=== PATIENT | male | born 1935 | race Caucasian/White ===

== ENCOUNTER 2018-10-09 00:25 | Emergency (ER) | payer MEDICARE, OTHER ==
[2018-10-09] MEDS ORDERED: Sodium Chloride 0.9% 10 ML Syringe FLUSH PRN (00:37)
[2018-10-09] MEDS: cefTRIAXone 2 GM Vial IVPUSH ONE (01:15)
[2018-10-09 01:43] LABS: CHLORIDE,CL 107 mmol/L (98-107); SODIUM,NA 144 mmol/L (136-145)
[2018-10-09 01:44] LABS: ANION GAP 14.4 mmol/L (10-20)
--- NOTE | 2018-10-09 02:17 | EDM.PDOC ---
ED HPI GENERAL MEDICAL PROBLEM - General Chief Complaint: General Stated Complaint: Weakness, fever Time Seen by Provider: 10/09/18 00:37 Source of Information: Reports: Patient, EMS, Family History Limitations: Reports: No Limitations - History of Present Illness INITIAL COMMENTS - FREE TEXT/NARRATIVE: Patient presents with complaints of sudden onset cough and weakness. Normally does ambulate independently but family states they were having to assist him. They state prior history of pneumonia with similar type symptoms. Has fever and chills, cough that is non productive. Patient does have atrial fibrillation with anticoagulation with coumadin. Denies chest pain. No headache or confusion. Does have SOB. No abdominal pain, blood in urine or stool. Is alert. Is diaphoretic on presentation with fever, tachypnea. Paced rhythm with a-fib on EKG. Onset: Sudden Onset Date: 10/09/18 Duration: Getting Worse Location: Reports: Generalized Associated Symptoms: Reports: Cough, Fever/Chills, Shortness of Breath, Weakness Treatments PEARL DIGGER: Reports: EKG, Oxygen - Related Data Allergies Allergy/AdvReac Type Severity Reaction Status Date / Time No Known Allergies Allergy Verified 10/09/18 01:14 Home Meds: Home Meds Levothyroxine Sodium 25 mcg PO DAILY 06/10/14 [History] Lisinopril 5 mg PO DAILY 06/10/14 [History] Pantoprazole Sodium 40 mg PO DAILY 06/10/14 [History] Sotalol [Betapace] 80 mg PO BID 06/10/14 [History] Past Medical History Cardiovascular History: Reports: Afib, Heart Failure, Hypertension, Pacemaker Gastrointestinal History: Reports: GERD Endocrine/Metabolic History: Reports: Hypothyroidism ED ROS GENERAL - Review of Systems Review Of Systems: See Below Constitutional: Reports: Fever, Chills HEENT: Reports: No Symptoms Respiratory: Reports: Shortness of Breath, Cough Cardiovascular: Reports: No Symptoms Endocrine: Reports: No Symptoms GI/Abdominal: Reports: No Symptoms : Reports: No Symptoms Musculoskeletal: Reports: No Symptoms Skin: Reports: No Symptoms Neurological: Reports: Weakness Psychiatric: Reports: No Symptoms Hematologic/Lymphatic: Reports: No Symptoms Immunologic: Reports: No Symptoms ED EXAM, GENERAL - Physical Exam Exam: See Below Exam Limited By: No Limitations General Appearance: Alert, WD/WN, Mild Distress Eye Exam: Bilateral Eye: EOMI, Normal Inspection, PERRL Ears: Normal TMs Nose: Normal Inspection, Normal Mucosa, No Blood Throat/Mouth: Normal Inspection, Normal Lips, Normal Teeth, Normal Gums, Normal Oropharynx, Normal Voice, No Airway Compromise Head: Atraumatic, Normocephalic Neck: Normal Inspection, Supple, Non-Tender, Full Range of Motion Respiratory/Chest: No Respiratory Distress, No Accessory Muscle Use, Chest Non- Tender, Crackles (bibasilar lobes) Cardiovascular: Other (paced with atrial fibrillation) Peripheral Pulses: 1+: Posterior Tibial (L), Posterior Tibial (R), Dorsalis Pedis (L), Dorsalis Pedis (R) GI/Abdominal: Normal Bowel Sounds, Soft, Non-Tender, No Distention Back Exam: Normal Inspection, Full Range of Motion, NT Extremities: Normal Range of Motion, Normal Capillary Refill, Pedal Edema (3+ pitting bilateral) Neurological: Alert, Oriented, CN II-XII Intact, Normal Cognition, Normal Gait, Normal Reflexes, No Motor/Sensory Deficits Psychiatric: Normal Affect, Normal Mood Skin Exam: Warm, Dry, Intact, Normal Color, No Rash Lymphatic: No Adenopathy Course - Vital Signs Last Recorded V/S: Last Vital Signs Temp 37.8 C 10/09/18 02:08 Pulse 100 10/09/18 02:08 Resp 24 H 10/09/18 02:08 BP 114/57 L 10/09/18 02:08 Pulse Ox 94 L 10/09/18 02:08 - Orders/Labs/Meds Labs: Laboratory Tests 10/09/18 10/09/18 10/09/18 Range/Units 01:00 01:00 01:00 WBC 11.4 H (4.0-10.0) x10^3/uL RBC 3.98 L (4.5-6.0) x10^6/uL Hgb 13.2 L (14.0-18.0) g/dL Hct 39.1 L (40.0-52.0) % MCV 98.2 H (78.0-93.0) fL MCH 33.2 H (26.0-32.0) pg MCHC 33.8 (32.0-36.0) g/dL RDW Coeff of Eron 12.8 (10.0-15.0) % Plt Count 114 L (130-400) x10^3/uL Neut % (Auto) 91.7 H (50.0-80.0) % Lymph % (Auto) 2.5 L (25.0-50.0) % [place] % (Auto) 5.6 (2.0-11.0) % Eos % (Auto) 0.1 (0.0-4.0) % Baso % (Auto) 0.1 L (0.2-1.2) % PT 19.4 H (10.0-12.8) SEC INR 1.7 L (2.0-3.5) Sodium 144 (136-145) mmol/L Potassium 4.4 (3.5-5.1) mmol/L Chloride 107 (98-107) mmol/L Carbon Dioxide 27 (21-32) mmol/L Anion Gap 14.4 (10-20) mmol/L BUN 30 H (7-18) mg/dL Creatinine 1.5 H (0.70-1.30) mg/dL Est Cr Clr Drug Dosing TNP Estimated GFR (MDRD) 45 Glucose 125 H (74-106) mg/dL Lactic Acid (0.4-2.0) mmol/L Calcium 8.8 (8.5-10.1) mg/dL Corrected Calcium 9.36 (8.5-10.1) mg/dL Magnesium 1.8 (1.8-2.4) mg/dL Total Bilirubin 1.0 (0.2-1.0) mg/dL AST 31 (15-37) U/L ALT 32 (16-63) U/L Alkaline Phosphatase 71 (46-116) U/L Troponin I 0.027 (<=0.056) ng/mL NT-Pro-B Natriuret Pep 1906 H (<=450) pg/mL Total Protein 6.4 (6.4-8.2) g/dL Albumin 3.3 L (3.4-5.0) g/dL Globulin 3.1 Albumin/Globulin Ratio 1.06 TSH, Ultra Sensitive 2.351 (0.358-3.74) uIU/mL Urine Color (YELLOW) Urine Appearance (CLEAR) Urine pH (5.0-8.0) Ur Specific [place] Urine Protein (NEGATIVE) mg/dL Urine Glucose (UA) (NEGATIVE) mg/dL Urine Ketones (NEGATIVE) mg/dL Urine Occult Blood (NEGATIVE) Urine Nitrite (NEGATIVE) Urine Bilirubin (NEGATIVE) Urine Urobilinogen (0.2) EU/dL Ur Leukocyte Esterase (NEGATIVE) Urine RBC (NOT SEEN) /HPF Urine WBC (NOT SEEN) /HPF Ur Squamous Epith Cells (NEGATIVE) /HPF Urine Bacteria (NEGATIVE) /HPF Hyaline Casts (NEGATIVE) /HPF Urine Mucus (NEGATIVE) /LPF 10/09/18 10/09/18 Range/Units 01:00 01:25 WBC (4.0-10.0) x10^3/uL RBC (4.5-6.0) x10^6/uL Hgb (14.0-18.0) g/dL Hct (40.0-52.0) % MCV (78.0-93.0) fL MCH (26.0-32.0) pg MCHC (32.0-36.0) g/dL RDW Coeff of Eron (10.0-15.0) % Plt Count (130-400) x10^3/uL Neut % (Auto) (50.0-80.0) % Lymph % (Auto) (25.0-50.0) % [place] % (Auto) (2.0-11.0) % Eos % (Auto) (0.0-4.0) % Baso % (Auto) (0.2-1.2) % PT (10.0-12.8) SEC INR (2.0-3.5) Sodium (136-145) mmol/L Potassium (3.5-5.1) mmol/L Chloride (98-107) mmol/L Carbon Dioxide (21-32) mmol/L Anion Gap (10-20) mmol/L BUN (7-18) mg/dL Creatinine (0.70-1.30) mg/dL Est Cr Clr Drug Dosing Estimated GFR (MDRD) Glucose (74-106) mg/dL Lactic Acid 2.4 H* (0.4-2.0) mmol/L Calcium (8.5-10.1) mg/dL Corrected Calcium (8.5-10.1) mg/dL Magnesium (1.8-2.4) mg/dL Total Bilirubin (0.2-1.0) mg/dL AST (15-37) U/L ALT (16-63) U/L Alkaline Phosphatase (46-116) U/L Troponin I (<=0.056) ng/mL NT-Pro-B Natriuret Pep (<=450) pg/mL Total Protein (6.4-8.2) g/dL Albumin (3.4-5.0) g/dL Globulin Albumin/Globulin Ratio TSH, Ultra Sensitive (0.358-3.74) uIU/mL Urine Color Dark yellow H (YELLOW) Urine Appearance Cloudy H (CLEAR) Urine pH 5.5 (5.0-8.0) Ur Specific [place] 1.020 Urine Protein Negative (NEGATIVE) mg/dL Urine Glucose (UA) Negative (NEGATIVE) mg/dL Urine Ketones Negative (NEGATIVE) mg/dL Urine Occult Blood Negative (NEGATIVE) Urine Nitrite Negative (NEGATIVE) Urine Bilirubin Negative (NEGATIVE) Urine Urobilinogen 0.2 (0.2) EU/dL Ur Leukocyte Esterase Negative (NEGATIVE) Urine RBC 0-5 (NOT SEEN) /HPF Urine WBC 0-5 (NOT SEEN) /HPF Ur Squamous Epith Cells Not seen (NEGATIVE) /HPF Urine Bacteria Few H (NEGATIVE) /HPF Hyaline Casts Many H (NEGATIVE) /HPF Urine Mucus Few H (NEGATIVE) /LPF Meds: Medications Discontinued Medications Generic Name Dose Route Start Last Admin Trade Name Freq PRN Reason Stop Dose Admin Ceftriaxone Sodium 2 gm 10/09/18 00:45 10/09/18 01:15 Rocephin IVPUSH 10/09/18 00:46 2 gm STAT ONE Administration Azithromycin 500 mg/ Sodium 250 mls @ 250 mls/hr 10/09/18 01:57 10/09/18 02: 20 Chloride IV 10/09/18 02:56 250 mls/hr STAT ONE Administration Sodium Chloride 10 ml 10/09/18 00:37 Saline Flush FLUSH ASDIRECTED PRN Keep Vein Open - Radiology Interpretation Free Text/Narrative:: Chest x-ray negative for acute pneumonia. Departure - Departure Time of Disposition: 03:12 Disposition: DC/Tfer to Acute Hospital 02 Condition: Fair Clinical Impression: CHF, Congestive heart failure, Pneumonia - Discharge Information Referrals: PCP,Unobtain [Primary Care Provider] - Forms: ED Department Discharge, [facility] - ED Communication Date/Time Date: 10/09/18 Time Called: 02:13 - Discussed Case With (1) Discussed Case With (1): Admitting Provider (Dr. Zayas, hospitalist at [facility] in [place] was given report. Will accept transfer of patient.)
[2018-10-09] MEDS: Azithromycin 500 MG in Sodium Chloride 0.9% 250 ML IV ONE (02:20)
--- NOTE | 2018-10-09 08:48 | CR ---
[id number] RAD/RAD Chest PA or AP 1V EXAM: FRONTAL CHEST INDICATION: Shortness of breath and cough. COMPARISON: June 10, 2014. DISCUSSION: The heart is enlarged with borderline central vascular congestion. Mild chronic basilar scarring. No definite infiltrates. Left subclavian approach pacemaker leads overlie the RA and RV. IMPRESSION: 1. Cardiomegaly with borderline central vascular congestion. Eliot Sargent MD 10/09/18 0846 Thank you for allowing us to participate in the care of your patient.
== END 2018-10-09 03:12 | disposition short-term general hospital (02) ==
LOC: VM.ED 00:25
DX: J18.9 Pneumonia, unspecified organism (principal); I11.0 Hypertensive heart disease with heart failure; I50.9 Heart failure, unspecified; I48.91 Unspecified atrial fibrillation; Z79.899 Other long term (current) drug therapy
CPT/HCPCS: 36415; 71045; 80053; 81001; 83605; 83735; 83880; 84443; 84484; 85025; 85610; 87040; 87804; 87804-59; 93005; 96365; 96375; 99285-25; J0456; J0696; J7050